=== PATIENT | female | born 1990 | race Caucasian/White ===

== ENCOUNTER 2019-10-31 20:58 | Emergency (ER) | payer MEDICAID ==
[~2019-10-31] VITALS: Ht 154.9 cm; Wt 61.2 kg
[2019-10-31 21:00] VITALS: BP_SYST 122
[2019-10-31] MEDS ORDERED: CEPHALEXIN 500 MG CAPSULE PO ONE (22:30)
[2019-10-31] MEDS ORDERED: DIPH-TET-PERTUS Vaccine 0.5 ML VIAL (ADACEL) I.M. ONE (22:30)
[2019-10-31 22:41] VITALS: BP_SYST 122
== END 2019-10-31 22:41 | disposition home or self-care (01) ==
LOC: SED 20:58
DX: L03.113 Cellulitis of right upper limb (principal)
CPT/HCPCS: 90715; 99283

== ENCOUNTER 2020-04-14 19:00 | Emergency (ER) | payer MEDICAID, SELFPAY ==
[~2020-04-14] VITALS: Ht 154.9 cm; Wt 61.2 kg
[2020-04-14 19:19] VITALS: BP_SYST 124
[2020-04-14] MEDS ORDERED: LIDOCAINE VISCOUS 2%, 15 ML UDC MM ONE (20:15)
[2020-04-14] MEDS ORDERED: MAG-AL HYDROX/SIMETH 30 ML UDC PO ONE (20:15)
[2020-04-14] MEDS ORDERED: PANTOPRAZOLE SODIUM 40 MG TAB PO ONE (20:15)
[2020-04-14] MEDS ORDERED: DICYCLOMINE HCL 10 MG/5 ML SOLUTION PO ONE (20:15)
[2020-04-14 21:04] VITALS: BP_SYST 118
== END 2020-04-14 21:04 | disposition home or self-care (01) ==
LOC: SED 19:00
DX: K21.9 Gastro-esophageal reflux disease without esophagitis (principal)
CPT/HCPCS: 93005; 99284; J2001

== ENCOUNTER 2022-04-24 17:16 | Emergency (ER) | payer MEDICAID ==
[~2022-04-24] VITALS: Ht 154.9 cm; Wt 61.2 kg
[2022-04-24 17:20] VITALS: BP_SYST 124
--- NOTE | 2022-04-24 17:20 | NUR ---
Patient triaged.VSS and patient appears in no acute distress at this time. Accompanied by EMT'S, awaiting available bed, and MD notified of need for MSE.
--- NOTE | 2022-04-24 17:40 | NUR ---
ER DR. VIVEROS EXAMINING PT
[2022-04-24] MEDS ORDERED: EPIN0.3P3 IM (17:48)
[2022-04-24 18:06] VITALS: BP_SYST 124
--- NOTE | 2022-04-24 18:06 | NUR ---
Patient given written and verbal discharge instructions and verbalizes understanding. ER MD discussed with patient the results and treatment provided. Patient in stable condition. ID arm band removed. Rx of EPI-PEN given. Patient educated on pain management and to follow up with PMD. Pain Scale 0/10. Opportunity for questions provided and answered. Medication side effect fact sheet provided.
== END 2022-04-24 18:06 | disposition home or self-care (01) ==
LOC: SED 17:16
DX: T78.2XXA Anaphylactic shock, unspecified, initial encounter (principal); R06.02 Shortness of breath; Z79.899 Other long term (current) drug therapy
CPT/HCPCS: 99283